=== PATIENT | female | born 1955 | race Caucasian/White ===

== ENCOUNTER 2017-09-11 08:24 | Outpatient (CLI) | payer OTHER | END 2017-09-11 08:25 | disposition home or self-care (01) | LOC: BICMAMMO 08:24 | PROVIDERS: ATTEND Obstetrics & Gynecology | DX: Z12.31 Encounter for screening mammogram for malignant neoplasm of breast (principal) | CPT/HCPCS: 77067 ==

== ENCOUNTER 2018-03-23 12:23 | Outpatient (CLI) | payer OTHER ==
--- NOTE | 2018-03-23 13:11 | RAD ---
PA AND LATERAL CHEST: Date: 03/23/18 HISTORY: Persistent cough. FINDINGS: Heart size and mediastinum are within normal limits. The lungs are clear of any infiltrative process. There are arthritic changes of the spine. IMPRESSION: No active intrathoracic disease. POS: [facility]
== END 2018-03-23 12:24 | disposition home or self-care (01) ==
LOC: BICRAD 12:23
PROVIDERS: ATTEND Family Medicine
DX: R05 Cough (principal)
CPT/HCPCS: 71046

== ENCOUNTER 2018-11-13 08:56 | Outpatient (CLI) | payer OTHER ==
--- NOTE | 2018-11-13 10:06 | MMO ---
Bilateral MAMMO Bilat Screen [facility]. CLINICAL HISTORY: Patient is 63 years old and is seen for screening. The patient has the following family history of breast cancer: 2 cousin females. The patient has a history of other cancer at age 34. VIEWS: The views performed were: bilateral craniocaudal with tomosynthesis and bilateral mediolateral oblique with tomosynthesis. FILMS COMPARED: The present examination has been compared to prior imaging studies performed at [facility] on 07/16/2014, 07/27/2015 and 08/04/2016. This study has been interpreted with the assistance of computer-aided detection. MAMMOGRAM FINDINGS: There are scattered fibroglandular densities. There are no suspicious masses, suspicious calcifications, or new areas of architectural distortion. IMPRESSION: THERE IS NO MAMMOGRAPHIC EVIDENCE OF MALIGNANCY. A ROUTINE FOLLOW-UP MAMMOGRAM IN 1 YEAR IS RECOMMENDED. THE RESULTS OF THIS EXAM WERE SENT TO THE PATIENT. ACR BI-RADS Category 1 - Negative MAMMOGRAPHY NOTE: 1. A negative mammogram report should not delay a biopsy if a dominant of clinically suspicious mass is present. 2. Approximately 10% to 15% of breast cancers are not detected by mammography. 3. Adenosis and dense breasts may obscure an underlying neoplasm. Reported by: DEANN KHAN MD Electonically Signed: [id number]
== END 2018-11-13 08:57 | disposition home or self-care (01) ==
LOC: BICMAMMO 08:56
PROVIDERS: ATTEND Obstetrics & Gynecology
DX: Z12.31 Encounter for screening mammogram for malignant neoplasm of breast (principal); Z80.3 Family history of malignant neoplasm of breast
CPT/HCPCS: 77063; 77067

== ENCOUNTER 2020-02-10 08:55 | Outpatient (CLI) | payer MEDICARE, OTHER ==
--- NOTE | 2020-02-10 09:31 | MMO ---
Bilateral MAMMO Bilat Screen [facility]. CLINICAL HISTORY: Patient is 64 years old and is seen for screening. The patient has the following family history of breast cancer: 2 cousin females. The patient has a history of other cancer at age 34. VIEWS: The views performed were: right mediolateral oblique with tomosynthesis. FILMS COMPARED: The present examination has been compared to prior imaging studies performed at [facility] on 07/16/2014, 07/27/2015, 08/04/2016 and 11/13/2018. This study has been interpreted with the assistance of computer-aided detection. MAMMOGRAM FINDINGS: There are scattered fibroglandular densities. There is an asymmetry seen in the upper-outer region of the right breast. In the left breast, there are no suspicious masses, calcifications or areas of architectural distortion. IMPRESSION: ASYMMETRY IN THE RIGHT BREAST REQUIRES ADDITIONAL EVALUATION. ADDITIONAL IMAGING. THE RESULTS OF THIS EXAM WERE SENT TO THE PATIENT. ACR BI-RADS Category 0 - Incomplete: Need additional imaging evaluation. [facility] will notify the patient of the need for additional imaging services. MAMMOGRAPHY NOTE: 1. A negative mammogram report should not delay a biopsy if a dominant of clinically suspicious mass is present. 2. Approximately 10% to 15% of breast cancers are not detected by mammography. 3. Adenosis and dense breasts may obscure an underlying neoplasm. Reported by: LEÓN SHELDON MD Electonically Signed: [id number]
== END 2020-02-10 08:56 | disposition home or self-care (01) ==
LOC: BICMAMMO 08:55
PROVIDERS: ATTEND Obstetrics & Gynecology
DX: Z12.31 Encounter for screening mammogram for malignant neoplasm of breast (principal); Z80.3 Family history of malignant neoplasm of breast; Z85.43 Personal history of malignant neoplasm of ovary; N64.89 Other specified disorders of breast
CPT/HCPCS: 77063; 77067

== ENCOUNTER 2020-02-13 09:19 | Outpatient (CLI) | payer MEDICARE, OTHER ==
--- NOTE | 2020-02-13 10:10 | MMO ---
Right Breast MAMMO Unilat Diag [facility]. CLINICAL HISTORY: Patient is 64 years old and is seen for additional evaluation requested from prior study. The patient has the following family history of breast cancer: 2 cousin females. The patient has a history of other cancer at age 34. VIEWS: The views performed were: right craniocaudal spot compression with tomosynthesis; right mediolateral oblique spot compression with tomosynthesis; and right mediolateral with tomosynthesis. FILMS COMPARED: The present examination has been compared to prior imaging studies performed at [facility] on 08/04/2016, 11/13/2018, 02/10/2020 and 02/13/2020. This study has been interpreted with the assistance of computer-aided detection. MAMMOGRAM FINDINGS: There are scattered fibroglandular densities. Additional views were performed. The previously seen abnormality is not definitely seen on the current study. US of the right upper outer breast shows a 3mm cyst at 11:00. There are no suspicious masses, suspicious calcifications, or new areas of architectural distortion. IMPRESSION: THERE IS NO MAMMOGRAPHIC EVIDENCE OF MALIGNANCY. A ROUTINE FOLLOW-UP MAMMOGRAM IN 1 YEAR IS RECOMMENDED. THE RESULTS OF THIS EXAM WERE SENT TO THE PATIENT. ACR BI-RADS Category 2 - Benign finding MAMMOGRAPHY NOTE: 1. A negative mammogram report should not delay a biopsy if a dominant of clinically suspicious mass is present. 2. Approximately 10% to 15% of breast cancers are not detected by mammography. 3. Adenosis and dense breasts may obscure an underlying neoplasm. Reported by: DEANN KHAN MD Electonically Signed: [id number]
--- NOTE | 2020-02-13 11:17 | ULT ---
RIGHT BREAST ULTRASOUND: Date: 02/13/2020 HISTORY: Abnormal mammogram of 02/10/2020. FINDINGS: Correlation is made with mammograms of 02/10/2020 and today. FINDINGS: The sonographic evaluation of the right upper outer breast demonstrates a 3.0 cm at the 11 o'clock po sition, 2.0 cm from the nipple. IMPRESSION: BI-RADS Category 2 - Benign findings. Return to annual mammographic screening. POS: OFF
== END 2020-02-13 09:20 | disposition home or self-care (01) ==
LOC: BICMAMMO 09:19
PROVIDERS: ATTEND Obstetrics & Gynecology
DX: R92.8 Other abnormal and inconclusive findings on diagnostic imaging of breast (principal); R92.2 Inconclusive mammogram
CPT/HCPCS: 76642; 77065; G0279

== ENCOUNTER 2021-02-15 09:26 | Outpatient (CLI) | payer MEDICARE, OTHER | END 2021-02-15 09:27 | disposition home or self-care (01) | LOC: BICMAMMO 09:26 | PROVIDERS: ATTEND Obstetrics & Gynecology | DX: Z12.31 Encounter for screening mammogram for malignant neoplasm of breast (principal); Z80.3 Family history of malignant neoplasm of breast; Z85.89 Personal history of malignant neoplasm of other organs and systems | CPT/HCPCS: 77063; 77067 ==

== ENCOUNTER 2021-11-23 13:32 | Outpatient (CLI) | payer MEDICARE, OTHER | END 2021-11-23 13:33 | disposition home or self-care (01) | LOC: ULT 13:32 | PROVIDERS: ATTEND Internal Medicine Cardiovascular Disease | DX: R00.2 Palpitations (principal) | CPT/HCPCS: 93306 ==

== ENCOUNTER 2022-03-01 08:25 | Outpatient (CLI) | payer MEDICARE, OTHER | END 2022-03-01 08:26 | disposition home or self-care (01) | LOC: BICMAMMO 08:25 | PROVIDERS: ATTEND Family Medicine | DX: Z12.31 Encounter for screening mammogram for malignant neoplasm of breast (principal); Z13.820 Encounter for screening for osteoporosis; Z78.0 Asymptomatic menopausal state; M85.89 Other specified disorders of bone density and structure, multiple sites; Z85.89 Personal history of malignant neoplasm of other organs and systems; Z80.3 Family history of malignant neoplasm of breast | CPT/HCPCS: 77063; 77067; 77080 ==

== ENCOUNTER 2023-03-13 10:55 | Outpatient (CLI) | payer MEDICARE, OTHER | END 2023-03-13 10:56 | disposition home or self-care (01) | LOC: BICMAMMO 10:55 | PROVIDERS: ATTEND Family Medicine | DX: Z12.31 Encounter for screening mammogram for malignant neoplasm of breast (principal); Z80.3 Family history of malignant neoplasm of breast; Z85.89 Personal history of malignant neoplasm of other organs and systems | CPT/HCPCS: 77063; 77067 ==

== ENCOUNTER 2023-09-26 08:59 | Outpatient (CLI) | payer MEDICARE, OTHER | END 2023-09-26 09:00 | disposition home or self-care (01) | LOC: BICMRI 08:59 | PROVIDERS: ATTEND Family Medicine Sports Medicine | DX: M75.121 Complete rotator cuff tear or rupture of right shoulder, not specified as traumatic (principal); S43.431A Superior glenoid labrum lesion of right shoulder, initial encounter; S46.211A Strain of muscle, fascia and tendon of other parts of biceps, right arm, initial encounter; M62.58 Muscle wasting and atrophy, not elsewhere classified, other site ==